=== PATIENT | female | born 1965 | race American Indian/Alaskan Native ===

== ENCOUNTER 2020-11-05 09:45 | Outpatient (CLI) | payer OTHER ==
--- NOTE | 2020-11-05 10:42 | XRay Report ---
LEFT FINGERS 3 VIEWS INDICATION: LEFT THUMB PAIN. COMPARISON: None. IMPRESSION: No acute osseous or soft tissue abnormality. No significant DJD. No abnormality of th e left thumb is detected on x-ray. Signer Name: Chandra Thomson Jr, MD Signed: 11/05/2020 10:38 AM Workstation Name: [id number]
== END 2020-11-05 09:46 | disposition home or self-care (01) ==
LOC: XRAY 09:45
PROVIDERS: ATTEND Family Medicine
DX: M79.645 Pain in left finger(s) (principal)